=== PATIENT | female | born 1965 | race Caucasian/White ===

== ENCOUNTER 2019-04-01 10:29 | Emergency (ER) | payer OTHER ==
--- NOTE | 2019-04-01 13:09 | ED Physician Documentation ---
History of Present Illness - Stated complaint Stated Complaint: BODY RASH - Chief complaint Chief Complaint: Wound - Additonal information Additional information: This is a 54-year-old female presents with a painful rash along her chest for the last 72 hours. She noticed some more new red spots over her right lower chest today which prompted her to come in. She states the pain is burning, and more painful when she touches the area, it is a shooting pain that goes along the rash. No fever, she has not noticed a rash elsewhere on her body. Review of Systems Constitutional: denies: Fever Skin: reports: Rash PD PAST MEDICAL HISTORY - Present Medications Home Medications: Ambulatory Orders Medication Instructions Recorded Confirmed Valacyclovir HCl [Valacyclovir] 1,000 mg PO TID #7 tablet 04/01/19 - Allergies Allergies/Adverse Reactions: Allergies Allergy/AdvReac Type Severity Reaction Status Date / Time Sulfa (Sulfonamide Allergy Unknown Verified 04/01/19 10:43 Antibiotics) - Living Situation Living Arrangement: reports: At home - Social History Does the pt smoke?: No PD ED PE NORMAL - Vitals Vital signs reviewed: Yes - General General: Alert and oriented X 3 - HEENT HEENT: Atraumatic - Respiratory Respiratory: No respiratory distress - Abdomen Abdomen: Non distended - Derm Derm: Other (Vesicular rash with surrounding erythema in a dermatomal distribution over the right mid chest) - Neuro Neuro: Alert and oriented X 3 Results - Vitals Vitals: Vital Signs - 24 hr 04/01/19 10:40 Temperature 36.9 C Heart Rate 93 Respiratory 16 Rate Blood Pressure 166/102 H O2 Saturation 97 Oxygen O2 Source Room air PD MEDICAL DECISION MAKING - ED course Complexity details: considered differential ED course: Patient presents with classic symptoms and a rash for shingles. Given that she is having new lesions, and her symptom onset was around 72 hours ago, we will start valacyclovir. I discussed this treatment, as well as the fact that she is infectious, and I discussed pain control. I also recommended primary care follow-up for any persistent symptoms. I discussed return precautions and patient was discharged home Departure - Departure Disposition: 01 Home, Self Care Clinical Impression: Shingles Qualifiers: Herpes zoster complications: without complications Qualified Code(s): B02.9 - Zoster without complications Condition: Good Instructions: ED Shingles Follow-Up: Your,PCP [Other] Prescriptions: Valacyclovir HCl [Valacyclovir] 1,000 mg PO TID #7 tablet Comments: You have shingles, please take the Valtrex which is prescribed. If you are developing rash throughout your body, or other concerning symptoms return to the emergency department. You may use Tylenol and ibuprofen for discomfort.
[2019-04-01] MEDS ORDERED: valACYclovir 500 MG TABLET PO STA ×2 (13:24→13:26)
[2019-04-01 13:32] VITALS: BP 133/86
[2019-04-01] MEDS ORDERED: valACYclovir 500 MG TABLET PO SCH (14:00)
== END 2019-04-01 13:38 | disposition home or self-care (01) ==
LOC: ED 10:29
DX: B02.9 Zoster without complications (principal)
CPT/HCPCS: 99282; 99283; A9270

== ENCOUNTER 2019-06-24 17:18 | Emergency (ER) | payer OTHER ==
--- NOTE | 2019-06-24 17:40 | ED Physician Documentation ---
PD HPI URI - Stated complaint Stated Complaint: FEVER,COUGH,BACK PX - Chief complaint Chief Complaint: Heent - History obtained from History obtained from: Patient - History of Present Illness Timing - onset: How many weeks ago (The patient sounds like she has bronchitis. This likely will be viral given the nonproductive nature. She has had some fevers over the last week and coughing to the point of almost vomiting. She has had muscular and chest wall pain associated with coughing and deep breathing. She denies any continual chest pain. She has not had head cold symptoms per se but just the cough fever and some left-sided pains.) Timing duration: Weeks (1) Timing details: Gradual onset, Still present Associated symptoms: Fever, Dry cough, Chest pain (Hurts on the left side predominantly with coughing and somewhat deep breathing. It does not hurt continually.). No: Nasal congestion, Rhinorrhea, Sinus pain, Hemoptysis, NVD, Bilateral edema Contributing factors: COPD / asthma (She had been prescribed an inhaler with a prior upper respiratory infection. She does use it intermittently before exercise and feels better with that.). No: Sick contact Improves by: No: Medication (No improvement with [id number] medicines for cough and congestion.) Similar symptoms before: Has not had sx before Recently seen: Clinic (Seen in a walk-in clinic in [place] and was told to use [id number] cough medicines with presumption of a viral URI.) Review of Systems Constitutional: reports: Fever, Chills, Myalgias Nose: denies: Rhinorrhea / runny nose, Congestion Throat: denies: Sore throat Cardiac: reports: Chest pain / pressure (Hurts predominantly on the left side with coughing hard and deep breathing. She was at a conference this past week and sat next to a chiropractor who is attending as well and that person felt her and thought there was mild dislocation of the rib and put it back in place. This was just a curbside opinion.). 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 : None HEENT: None Psych: None Musculoskeletal: None, Other (Ehler-Danlos) Derm: None - Past Surgical History Past Surgical History: Yes Ortho: Shoulder arthroplasty - Present Medications Home Medications: Ambulatory Orders Medication Instructions Recorded Confirmed Valacyclovir HCl [Valacyclovir] 1,000 mg PO TID #7 tablet 04/01/19 Albuterol Sulfate [Albuterol 2 puffs IH QID #1 hfa.aer.ad 06/24/19 Sulfate Hfa] Azithromycin [Zithromax] 0 mg PO DAILY #6 tablet 06/24/19 Benzonatate [Tessalon Perle] 100 mg PO TID PRN #30 capsule 06/24/19 Hydrocodone/Acetaminophen [[place] 1 each PO Q6H PRN #15 tablet 06/24/19 5-325 Tablet] dexAMETHasone [Decadron] 4 mg PO DAILY #5 tablet 06/24/19 - Allergies Allergies/Adverse Reactions: Allergies Allergy/AdvReac Type Severity Reaction Status Date / Time Sulfa (Sulfonamide Allergy Unknown Verified 06/24/19 17:34 Antibiotics) - Social History Does the pt smoke?: No Smoking Status: Never smoker Does the pt drink ETOH?: No Does the pt have substance abuse?: No - Immunizations Immunizations are current?: Yes - POLST Patient has POLST: No PD ED PE NORMAL - Vitals Vital signs reviewed: Yes - General General: Alert and oriented X 3, No acute distress, Well developed/nourished - HEENT HEENT: Pharynx benign - Neck Neck: Supple, no meningeal sign, No adenopathy - Cardiac Cardiac: RRR, No murmur - Respiratory Respiratory: Clear bilaterally - Abdomen Abdomen: Soft, Non tender - Derm Derm: Normal color, Warm and dry - Neuro Neuro: Alert and oriented X 3, No motor deficit, Normal speech Results - Vitals Vitals: Vital Signs - 24 hr 06/24/19 06/24/19 17:34 18:51 Temperature 37.5 C 37.2 C Heart Rate 126 H 111 H Respiratory 14 18 Rate Blood Pressure 160/100 H 149/92 H O2 Saturation 97 99 Oxygen O2 Source Room air - Labs Labs: Laboratory Tests 06/24/19 17:30 Urine Color YELLOW Urine Clarity CLEAR Urine pH 5.5 Ur Specific [place] 1.010 Urine Protein NEGATIVE Urine Glucose (UA) NEGATIVE Urine Ketones NEGATIVE Urine Occult Blood NEGATIVE Urine Nitrite NEGATIVE Urine Bilirubin NEGATIVE Urine Urobilinogen 0.2 (NORMAL) Ur Leukocyte Esterase NEGATIVE Ur Microscopic Review NOT INDICATED Urine Culture Comments NOT INDICATED - Rads (name of study) chest xray Radiology: Prelim report reviewed, See rad report PD MEDICAL DECISION MAKING - ED course Complexity details: reviewed results (Likely to be a viral illness but with the degree of coughing and not much upper respiratory symptoms, could consider a pertussis like process. She did have cough and fevers and so does sound infectious. It is been slow progression. She does not have any calf tenderness or swelling or any recent travel. She presented slightly tachycardic at first but the heart rate improved while here.), considered differential (The patient sounds like she has bronchitis. This likely will be viral given the nonproductive nature. She has had some fevers over the last week and coughing to the point of almost vomiting. She has had muscular and chest wall pain a ssociated with coughing and deep breathing. She denies any continual chest pain. She has not had head cold symptoms per se but just the cough fever and some left-sided pains. 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 ), d/w patient Departure - Departure Disposition: 01 Home, Self Care Clinical Impression: Acute bronchitis Qualifiers: Bronchitis organism: unspecified organism Qualified Code(s): J20.9 - Acute br onchitis, unspecified Condition: Stable Record reviewed to determine appropriate education?: Yes Instructions: ED Upper Resp Infec Abx Tx Follow-Up: DARVIN BRITO MD [Primary Care Provider] - Prescriptions: Albuterol Sulfate [Albuterol Sulfate Hfa] 2 puffs IH QID #1 hfa.aer.ad Azithromycin [Zithromax] 0 mg PO DAILY #6 tablet Benzonatate [Tessalon Perle] 100 mg PO TID PRN #30 capsule PRN Reason: Cough dexAMETHasone [Decadron] 4 mg PO DAILY #5 tablet Hydrocodone/Acetaminophen [[place] 5-325 Tablet] 1 each PO Q6H PRN #15 tablet PRN Reason: Pain Comments: The x-ray does not show any obvious abnormality. We would treat this as a bronchitis. This may likely be viral but with the symptoms isolated to coughing so much, I would consider bacterial instead. As such we can treat with Zithromax antibiotic and also used Decadron steroid for inflammation of the airways. Tessalon if needed for cough suppression. I would suggest albuterol inhaler 2 puffs 4 times a day to help with cough and breathing. Continue it intermittently as needed. You can add Tylenol or hydrocodone as needed for cough suppression and also to help with pain. Recheck if not improving well over the next several days. Discharge Date/Time: 06/24/19 19:02
[2019-06-24 17:45] LABS: BILIRUBIN,URINE NEGATIVE (NEGATIVE); GLUCOSE, URINE (UA) NEGATIVE (NEGATIVE); KETONES,URINE (UA) NEGATIVE (NEGATIVE); LEUKOCYTE ESTERASE, URINE NEGATIVE (NEGATIVE); NITRITE,URINE NEGATIVE (NEGATIVE); OCCULT BLOOD,URINE NEGATIVE (NEGATIVE); PH,URINE 5.5 PH (5.0-7.5); PROTEIN,URINE NEGATIVE (NEGATIVE); UROBILINOGEN,URINE 0.2 (NORMAL) E.U./dL (NORMAL)
[2019-06-24 17:51] LABS: CLARITY,URINE CLEAR (CLEAR)
[2019-06-24] MEDS ORDERED: BENZONATATE 100 MG CAPSULE PO STA (18:04)
[2019-06-24] MEDS ORDERED: DOXYCYCLINE 100 MG TABLET PO STA (18:04)
[2019-06-24] MEDS ORDERED: DEXAMETHASONE 10 MG/ML VIAL PO STA (18:04)
[2019-06-24] MEDS ORDERED: CHERRY SYRUP 10 ML UDC PO ONE (18:04)
--- NOTE | 2019-06-24 18:47 | XRAY Report ---
Reason: dyspnea/ cough Procedure Date: 06/24/2019 Accession Number: [id number] / [id number] Procedure: XR - Chest 2 View X-Ray CPT Code: 36273 Final Report FULL RESULT: EXAM: CHEST RADIOGRAPHY EXAM DATE: 06/24/2019 06:15 PM. CLINICAL HISTORY: Cough and fever for 5 days. Dyspnea. COMPARISON: None. TECHNIQUE: 2 views. FINDINGS: Lungs/Pleura: Patchy opacity, mid right base, otherwise no focal opacities evident. Blunting of the right costophrenic angle. No left pleural effusion. No pneumothorax. Normal volumes. Mediastinum: Heart and mediastinal contours are unremarkable. Other: No bony abnormality noted. IMPRESSION: Right base opacity with small right pleural effusion compatible with pneumonia. Consider follow-up to assure clearing. RADIA
[2019-06-24] MEDS ORDERED: HYDROcod/ACETAM 5/325 MG TABLET PO STA (18:52)
[2019-06-24] MEDS ORDERED: ALBUTEROL NEB 2.5 MG/3 ML INH STA (18:52)
[2019-06-24 18:53] VITALS: BP 149/92
== END 2019-06-24 19:02 | disposition home or self-care (01) ==
LOC: ED 17:18
DX: J20.9 Acute bronchitis, unspecified (principal); R91.8 Other nonspecific abnormal finding of lung field; J90 Pleural effusion, not elsewhere classified; I10 Essential (primary) hypertension
CPT/HCPCS: 71046; 81003; 99284; A9270; 81001; 87086

== ENCOUNTER 2019-06-26 22:32 | Outpatient (CLI) | payer OTHER | END 2019-06-26 22:33 | disposition critical access hospital (66) | LOC: EMS 22:32 | PROVIDERS: ATTEND Surgery | DX: R10.11 Right upper quadrant pain (principal) | CPT/HCPCS: A0425; A0427 ==

== ENCOUNTER 2019-06-26 22:38 | Emergency (ER) | payer OTHER ==
--- NOTE | 2019-06-26 22:42 | ED Physician Documentation ---
History of Present Illness - Stated complaint Stated Complaint: RLQ PAIN - Chief complaint Chief Complaint: Neuro - History obtained from History obtained from: Patient (The patient is a 54-year-old female brought in by ambulance with a chief complaint of nerve pain on the right Upper quadrant where she previously had shingles.The patient reports that she feels like she is having severe nerve pain that was just like her shingles outbreak that she had last year.She recently was diagnosed with what sounds like either pneumonia or bronchitis and was treated with azithromycin as well as a Medrol Dosepak.She denies any chest pain or shortness of breath but she does report previously that she was coughing severely she denies any hemoptysis or syncopal episodes she specifically denied any chest pain today.The patient reports that she is c urrently under a lot of stress as recently she was taking care of her while he was admitted to the hospital for a brain tumor as well as a cardiac work-up.) Review of Systems Constitutional: reports: Fever, Chills Eyes: reports: Reviewed and negative Ears: reports: Reviewed and negative Nose: reports: Reviewed and negative Throat: reports: Reviewed and negative Cardiac: denies: Chest pain / pressure, Palpitations, Pedal edema, Calf pain Respiratory: reports: Cough. denies: Dyspnea, Hemoptysis, Wheezing GI: reports: Abdominal Pain : reports: Reviewed and negative. 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 : None HEENT: None Psych: None Musculoskeletal: None, Other (Ehler-Danlos) Derm: None - Past Surgical History Past Surgical History: Yes Ortho: Shoulder arthroplasty - Present Medications Home Medications: Ambulatory Orders Medication Instructions Recorded Confirmed Valacyclovir HCl [Valacyclovir] 1,000 mg PO TID #7 tablet 04/01/19 Albuterol Sulfate [Albuterol 2 puffs IH QID #1 hfa.aer.ad 06/24/19 Sulfate Hfa] Azithromycin [Zithromax] 0 mg PO DAILY #6 tablet 06/24/19 Benzonatate [Tessalon Perle] 100 mg PO TID PRN #30 capsule 06/24/19 Hydrocodone/Acetaminophen [[place] 1 each PO Q6H PRN #15 tablet 06/24/19 5-325 Tablet] dexAMETHasone [Decadron] 4 mg PO DAILY #5 tablet 06/24/19 Doxycycline Monohydrate 100 mg PO BID 7 Days #14 tablet 06/27/19 Gabapentin 300 mg PO TID #10 capsule 06/27/19 Hydrocodone/Acetaminophen [[place] 1 each PO Q6HR PRN #7 tablet 06/27/19 5-325 Tablet] - Allergies Allergies/Adverse Reactions: Allergies Allergy/AdvReac Type Severity Reaction Status Date / Time Sulfa (Sulfonamide Allergy Unknown Verified 06/24/19 17:34 Antibiotics) - Social History Does the pt smoke?: No Smoking Status: Never smoker Does the pt drink ETOH?: No Does the pt have substance abuse?: No - Immunizations Immunizations are current?: Yes - POLST Patient has POLST: No PD ED PE NORMAL - Vitals Vital signs reviewed: Yes - General General: Alert and oriented X 3, No acute distress, Well developed/nourished - HEENT HEENT: Atraumatic, PERRL, EOMI, Ears normal, Moist mucous membranes, Pharynx benign, Dentition benign - Neck Neck: Supple, no meningeal sign, No bony TTP, No adenopathy, No JVD, No bruit - Cardiac Cardiac: RRR, No murmur, No gallop, No rub, Strong equal pulses - Respiratory Respiratory: No respiratory distress, Clear bilaterally - Abdomen Abdomen: Normal bowel sounds, Soft, Non distended, No organomegaly, Other (Diffuse tenderness in the abdomen more so in the right upper quadrant) - Derm Derm: Normal color, Warm and dry, No rash, Other (There is diffuse tenderness to palpation approximately around dermatome T9-T10 On the right sideWithout any lesions but exquisite tenderness to palpation) - Extremities Extremities: No deformity - Neuro Neuro: Alert and oriented X 3, employment coordinator 2-12 intact, No motor deficit, Normal speech - Psych Psych: Normal mood, Normal affect Results - Vitals Vitals: Vital Signs - 24 hr 06/26/19 22:38 Temperature 36.3 C L Heart Rate 95 Respiratory 24 Rate Blood Pressure 141/119 H O2 Saturation 97 Oxygen O2 Source Room air - Labs Labs: Laboratory Tests 06/26/19 06/26/19 06/26/19 23:40 23:40 23:40 WBC 20.1 H RBC 4.35 Hgb 13.0 Hct 38.9 MCV 89.4 MCH 29.9 MCHC 33.4 RDW 13.1 Plt Count 404 MPV 11.4 H Neut # (Auto) Not Reportable Lymph # (Auto) Not Reportable [place] # (Auto) Not Reportable Eos # (Auto) Not Reportable Baso # (Auto) Not Reportable Absolute Nucleated RBC Not Reportable Total Counted 100 Band Neuts % (Manual) 0 Abnorm Lymph % (Manual) 4 Nucleated RBC % Not Reportable Neutrophils # (Manual) 16.3 H Lymphocytes # (Manual) 3.0 Monocytes # (Manual) 0.8 Eosinophils # (Manual) 0.0 Basophils # (Manual) 0.0 Differential Comment MANUAL DIFFERENTIAL WBC Morphology NORMAL APPEARANCE Platelet Estimate NORMAL (130-450,000) Platelet Morphology 1+ LARGE PLATELETS RBC Morph Micro Appear NORMAL APPEARANCE PT INR APTT Sodium 135 Potassium 3.9 Chloride 101 Carbon Dioxide 23 Anion Gap 11.0 BUN 26 H Creatinine 0.8 Estimated GFR (MDRD) 75 L Glucose 132 H Lactic Acid Calcium 8.6 Total Bilirubin 0.2 AST 17 ALT 21 Alkaline Phosphatase 64 Troponin I High Sens 3.9 B-Natriuretic Peptide Total Protein 7.3 Albumin 3.4 Globulin 3.9 Albumin/Globulin Ratio 0.9 L Lipase 32 06/27/19 06/27/19 06/27/19 00:04 00:04 00:04 WBC RBC Hgb Hct MCV MCH MCHC RDW Plt Count MPV Neut # (Auto) Lymph # (Auto) [place] # (Auto) Eos # (Auto) Baso # (Auto) Absolute Nucleated RBC Total Counted Band Neuts % (Manual) Abnorm Lymph % (Manual) Nucleated RBC % Neutrophils # (Manual) Lymphocytes # (Manual) Monocytes # (Manual) Eosinophils # (Manual) Basophils # (Manual) Differential Comment WBC Morphology Platelet Estimate Platelet Morphology RBC Morph Micro Appear PT 12.6 INR 1.1 APTT 28.0 Sodium Potassium Chloride Carbon Dioxide Anion Gap BUN Creatinine Estimated GFR (MDRD) Glucose Lactic Acid 2.0 Calcium Total Bilirubin AST ALT Alkaline Phosphatase Troponin I High Sens B-Natriuretic Peptide 42 Total Protein Albumin Globulin Albumin/Globulin Ratio Lipase PD MEDICAL DECISION MAKING - ED course Complexity details: considered differential (Patient's history and exam are consistent with pneumonia as well as postherpetic neuralgia she does have a leukocytosis which could be attributable to infection and/or being on prednisone currently.Patient will be treated with 1 dose of IV antibiotics.We did have a lengthy discussion regarding all of the test results and planning we discussed inpatient admission versus observation versus discharging home with close follow-up the patient would like to be discharged home.Which I feel is a reasonable option with close follow-up) Departure - Departure Disposition: Home, Self Care Clinical Impression: Postherpetic neuralgia Pneumonia Qualifiers: Pneumonia type: due to unspecified organism Laterality: right Lung location: unspecified part of lung Qualified Code(s): J18.9 - Pneumonia, unspecified organism Condition: Good Instructions: Pneumonia Dc, Neuropathy Peripheral Follow-Up: YOUR,DOCTOR [Other] - 06/27/19 Prescriptions: Hydrocodone/Acetaminophen [[place] 5-325 Tablet] 1 each PO Q6HR PRN #7 tablet PRN Reason: Pain Doxycycline Monohydrate 100 mg PO BID 7 Days #14 tablet Gabapentin 300 mg PO TID #10 capsule
[2019-06-26] MEDS ORDERED: ONDANSETRON 4 MG/2 ML VIAL IVP STA (23:17)
[2019-06-26] MEDS ORDERED: SODIUM CHLORIDE 0.9% 1,000 ML IV ONE (23:17)
[2019-06-26] MEDS ORDERED: HYDROmorphone 2 MG/ML VIAL IVP STA (23:17)
[2019-06-26 23:56] LABS: BASOPHILS % (AUTO) 0.5 %; EOSINOPHILS % (AUTO) 0.7 %; LYMPHOCYTES % (AUTO) 11.4 %; MEAN CORPUSCULAR HEMOGLOBIN 29.9 pg (27.0-31.0); MEAN CORPUSCULAR HGB CONC 33.4 g/dL (32.0-36.0); MEAN CORPUSCULAR VOLUME 89.4 fL (81.0-99.0); MEAN PLATELET VOLUME 11.4 fL (7.9-10.8); MONOCYTES % (AUTO) 6.5 %; NEUTROPHILS % (AUTO) 79.3 %; PLT - PLATELET COUNT 404 10^3/uL (130-450); RED BLOOD COUNT 4.35 10^6/uL (4.20-5.40); RED CELL DISTRIBUTION WIDTH 13.1 % (12.0-15.0); WHITE BLOOD COUNT 20.1 x10^3/uL (4.8-10.8)
[2019-06-27 00:03] LABS: BAND NEUTROPHILS % (MANUAL) 0 %
[2019-06-27 00:09] LABS: ALBUMIN 3.4 g/dL (3.2-5.5); ALBUMIN/GLOBULIN RATIO 0.9 (1.0-2.2); BILIRUBIN,TOTAL 0.2 mg/dL (0.2-1.0); CALCIUM 8.6 mg/dL (8.5-10.3); CREATININE 0.8 mg/dL (0.4-1.0); TOTAL PROTEIN 7.3 g/dL (6.7-8.2)
[2019-06-27 00:23] LABS: INR 1.1 (0.8-1.2); PT - PROTHROMBIN TIME 12.6 secs (9.9-12.6)
[2019-06-27 00:35] LABS: ABNORMAL LYMPHS % (MANUAL) 4 %; LYMPHOCYTES % (MANUAL) 11 %; MONOCYTES # (MANUAL) 0.8 10^3/uL (0.0-1.0)
[2019-06-27 00:38] LABS: RBC MORPHOLOGY (MULTIPLE) NORMAL APPEARANCE (NORMAL)
--- NOTE | 2019-06-27 00:38 | XRAY Report ---
Reason: SOB Procedure Date: 06/27/2019 Accession Number: [id number] / [id number] Procedure: XR - Chest 1 View X-Ray CPT Code: 75796 Final Report FULL RESULT: EXAM: CHEST RADIOGRAPHY EXAM DATE: 06/27/2019 12:02 AM CLINICAL HISTORY: Shortness of breath. COMPARISON: CHEST 2 VIEW 06/24/2019 6:18 PM. TECHNIQUE: 1 view. FINDINGS: Lungs/Pleura: There is elevation of the right hemidiaphragm. The lungs are otherwise clear. No pleural effusion or pneumothorax. Mediastinum: Within exam limitations, the cardiomediastinal contour is normal. Other: None. IMPRESSION: No acute pulmonary airspace disease. RADIA
[2019-06-27 00:39] LABS: DIFFERENTIAL COMMENT MANUAL DIFFERENTIAL; PLATELET ESTIMATE, MANUAL NORMAL (130-450,000) (NORMAL); PLATELET MORPHOLOGY 1+ LARGE PLATELETS (NORMAL)
[2019-06-27] MEDS ORDERED: IOVERSOL 320 100 ML VIAL IVP ONE ×2 (00:42→00:47)
--- NOTE | 2019-06-27 01:13 | CT Report ---
Reason: ABD PAIN Procedure Date: 06/27/2019 Accession Number: [id number] / [id number] Procedure: CT - Abdomen/Pelvis W CPT Code: Final Report FULL RESULT: EXAM: CT ABDOMEN AND PELVIS EXAM DATE: 06/27/2019 12:41 AM CLINICAL HISTORY: Abdominal pain. COMPARISONS: CHEST 1 VIEW 06/26/2019 11:45 PM. TECHNIQUE: Routine helical CT imaging was performed through the abdomen and pelvis. IV contrast: 100 mL Optiray 320. Enteric contrast: No. Reconstructions: Coronal and sagittal. In accordance with CT protocol optimization, one or more of the following dose reduction techniques were utilized for this exam: automated exposure control, adjustment of mA and/or KV based on patient size, or use of iterative reconstructive technique. FINDINGS: Lung Bases: There is a small right pleural effusion. A small wedge-shaped focus of consolidation is seen in the right lower lobe. The left lung base is clear. Liver: There is a partially exophytic 6.7 cm cyst in the lateral segment of the liver. At least 3 additional smaller cysts are seen in the right hepatic lobe. Gallbladder/Bile Ducts: Unremarkable. Spleen: Normal. Pancreas: Normal. Adrenal Glands: Normal. Kidneys: Normal. No masses or hydronephrosis. Peritoneal Cavity/Bowel: diverticulosis without diverticulitis. No small bowel obstruction. No free air or fluid collections. The appendix is well-visualized and normal. Pelvic Organs: There is a 2.7 cm exophytic fibroid at the left uterine fundus. No pelvic fluid collections. The urinary bladder is unremarkable. Vasculature: No aneurysms or other significant abnormality. Bones: No significant abnormality. Other: None. IMPRESSION: 1. Diverticulosis without diverticulitis or other acute inflammatory process. 2. No small bowel obstruction or fluid collections. 3. Small right pleural effusion with small focus of right lower lobe consolidation suspicious for pneumonia in the appropriate clinical context. Consider radiographic follow-up to confirm resolution. RADIA
[2019-06-27] MEDS ORDERED: cefTRIAXone 1 GM in SODIUM CHLORIDE 0.9% MINIBAG 100 ML IV STA (01:18)
[2019-06-27] MEDS ORDERED: HYDROcod/ACET 5/325 Prepack 4 PO STA (02:06)
[2019-06-27 02:25] VITALS: BP 146/99
== END 2019-06-27 02:26 | disposition home or self-care (01) ==
LOC: EDUNIT# → ED 22:38
DX: B02.29 Other postherpetic nervous system involvement (principal); J18.9 Pneumonia, unspecified organism; I10 Essential (primary) hypertension
CPT/HCPCS: 36415; 71045; 74177; 80053; 83605; 83690; 83880; 84484; 85025; 85610; 85730; 93005; 96374; 96375; 99284; J1170; Q9967

== ENCOUNTER 2019-07-10 10:07 | Emergency (ER) | payer OTHER ==
--- NOTE | 2019-07-10 12:49 | XRAY Report ---
Reason: cough Procedure Date: 07/10/2019 Accession Number: [id number] / [id number] Procedure: XR - Chest 2 View X-Ray CPT Code: 99053 Final Report FULL RESULT: EXAM: CHEST RADIOGRAPHY EXAM DATE: 07/10/2019 12:25 PM. CLINICAL HISTORY: Cough. COMPARISON: CHEST 1 VIEW 06/26/2019 11:45 PM ABDOMEN/PELVIS W/ 06/27/2019 12:30 AM. TECHNIQUE: 2 views. FINDINGS: Lungs/Pleura: There is reticular opacity within the right lung base. There is a small right pleural effusion. There is no evidence of pneumothorax. Mediastinum: Heart and mediastinal contours are unremarkable. Other: None. IMPRESSION: 1. There is reticular opacity within the right lung base which is suspicious for infiltrate. There is a small right pleural effusion. 2. The left lung is clear. 3. There is no evidence of pneumothorax. RADIA
--- NOTE | 2019-07-10 13:19 | ED Physician Documentation ---
PD HPI URI - Stated complaint Stated Complaint: COUGH - Chief complaint Chief Complaint: Resp - History obtained from History obtained from: Patient - History of Present Illness Timing - onset: How many weeks ago (2) Timing duration: Weeks (2) Timing details: Gradual onset, Still present Associated symptoms: Nasal congestion, Dry cough, Chest pain, Dyspnea Improves by: Rest, Medication Worsened by: Activity Similar symptoms before: Diagnosis (pneumonia) Recently seen: Emergency Dept - Additional information Additional information: 54-year-old female seen here 2 weeks ago with cough and chest pain was diagnosed with bronchitis placed on a azithromycin dexamethasone and 2 days later her shingles pain returned with a vengeance. She has come back to the emergency department she was diagnosed with a right lower lobe pneumonia and placed onto doxycycline. Despite taking this she has had no significant improvement she continues to have a cough with pain in the right chest with the coughing and trouble getting a full deep breath associated with the pain in the right side. She states the rash of the shingles is resolved. She does not feel that she has resolved her infection. Review of Systems Constitutional: denies: Fever Eyes: denies: Decreased vision Ears: denies: Ear pain Nose: denies: Rhinorrhea / runny nose, Congestion Throat: denies: Sore throat Cardiac: reports: Chest pain / pressure. denies: Palpitations, Pedal edema, Calf pain Respiratory: reports: Dyspnea, Cough GI: denies: Abdominal Pain, Nausea, Vomiting : denies: Dysuria, Frequency Skin: denies: Rash Musculoskeletal: denies: Neck pain, Back pain, Extremity pain Neurologic: denies: Generalized weakness, Focal weakness, Numbness PD PAST MEDICAL HISTORY - Past Medical History Cardiovascular: Hypertension Respiratory: None Neuro: None Endocrine/Autoimmune: HyPOthyroidism GI: None CLERICAL SUPPORT: None : None HEENT: None Psych: None Musculoskeletal: None, Other (Ehler-Danlos) Derm: None - Past Surgical History Past Surgical History: Yes Ortho: Shoulder arthroplasty - Present Medications Home Medications: Ambulatory Orders Medication Instructions Recorded Confirmed Valacyclovir HCl [Valacyclovir] 1,000 mg PO TID #7 tablet 04/01/19 Albuterol Sulfate [Albuterol 2 puffs IH QID #1 hfa.aer.ad 06/24/19 Sulfate Hfa] Azithromycin [Zithromax] 0 mg PO DAILY #6 tablet 06/24/19 Benzonatate [Tessalon Perle] 100 mg PO TID PRN #30 capsule 06/24/19 Hydrocodone/Acetaminophen [[place] 1 each PO Q6H PRN #15 tablet 06/24/19 5-325 Tablet] dexAMETHasone [Decadron] 4 mg PO DAILY #5 tablet 06/24/19 Doxycycline Monohydrate 100 mg PO BID 7 Days #14 tablet 06/27/19 Gabapentin 300 mg PO TID #10 capsule 06/27/19 Hydrocodone/Acetaminophen [[place] 1 each PO Q6HR PRN #7 tablet 06/27/19 5-325 Tablet] Cefdinir 300 mg PO BID #20 capsule 07/10/19 - Allergies Allergies/Adverse Reactions: Allergies Allergy/AdvReac Type Severity Reaction Status Date / Time Sulfa (Sulfonamide Allergy Unknown Verified 07/10/19 10:11 Antibiotics) - Social History Does the pt smoke?: No Smoking Status: Never smoker Does the pt drink ETOH?: No Does the pt have substance abuse?: No - Immunizations Immunizations are current?: Yes - POLST Patient has POLST: No PD ED PE NORMAL - Vitals Vital signs reviewed: Yes (Tachycardic and hypertensive) - General General: Alert and oriented X 3, No acute distress, Well developed/nourished - HEENT HEENT: Atraumatic, PERRL, EOMI, Ears normal, Moist mucous membranes, Pharynx benign, Dentition benign - Neck Neck: Supple, no meningeal sign, No bony TTP - Cardiac Cardiac: RRR, No murmur - Respiratory Respiratory: No respiratory distress, Other (diminished breath sounds.) - Abdomen Abdomen: Soft, Non tender - Back Back: No CVA TTP, No spinal TTP - Derm Derm: Normal color, Warm and dry, No rash - Extremities Extremities: No deformity, No edema, No calf tenderness / cord - Neuro Neuro: Alert and oriented X 3, 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, No motor deficit, No sensory deficit, Normal speech Eye Opening: Spontaneous Motor: Obeys Commands Verbal: Oriented GCS Score: 15 - Psych Psych: Normal mood, Normal affect Results - Vitals Vitals: Vital Signs - 24 hr 07/10/19 07/10/19 10:11 13:39 Temperature 36.8 C Heart Rate 120 H 104 H Respiratory 14 20 Rate Blood Pressure 161/90 H 153/100 H O2 Saturation 95 96 Oxygen O2 Source Room air PD MEDICAL DECISION MAKING - ED course Complexity details: reviewed old records, reviewed results, re-evaluated patient, considered differential, d/w patient ED course: 54-year-old female with a history of a recent pneumonia has not had improvement with the use of a azithromycin or doxycycline. She continues to have symptoms and she has had a progression of findings on her chest x-ray. We have given her a second injection of Rocephin and we will change her antibiotic to Cefdinir. Departure - Departure Disposition: 01 Home, Self Care Clinical Impression: Pneumonia Qualifiers: Pneumonia type: due to unspecified organism Laterality: right Lung location: lower lobe of lung Qualified Code(s): J18.9 - Pneumonia, unspecified organism Condition: Stable Instructions: ED Pneumonia Adult Follow-Up: Your, doctor [Other] Prescriptions: Cefdinir 300 mg PO BID #20 capsule
[2019-07-10] MEDS ORDERED: LIDOCAINE 1% 2 ML VIAL MC ONE (13:37)
[2019-07-10] MEDS ORDERED: cefTRIAXone 1 GM VIAL IM STA (13:37)
[2019-07-10 13:40] VITALS: BP 153/100
== END 2019-07-10 14:10 | disposition home or self-care (01) ==
LOC: ED 10:07
DX: J18.9 Pneumonia, unspecified organism (principal)
CPT/HCPCS: 71046; 96372; 99283; 99284

== ENCOUNTER 2020-10-03 07:00 | Outpatient (CLI) | payer BC, MEDICAID, OTHER | END 2020-10-03 23:59 | disposition home or self-care (01) | LOC: LAB.N 07:00 | PROVIDERS: ATTEND Family Medicine | DX: R30.0 Dysuria (principal) | CPT/HCPCS: 87086 ==

== ENCOUNTER 2020-10-30 08:06 | Outpatient (CLI) | payer BC ==
[2020-10-30 08:25] LABS: BASOPHILS # (AUTO) 0.1 10^3/uL (0.0-0.1); EOSINOPHILS # (AUTO) 0.7 10^3/uL (0.0-0.7); EOSINOPHILS % (AUTO) 8.8 %; HCT - HEMATOCRIT 41.6 % (37.0-47.0); LYMPHOCYTES # (AUTO) 1.9 10^3/uL (1.5-3.5); LYMPHOCYTES % (AUTO) 24.2 %; MEAN CORPUSCULAR HEMOGLOBIN 29.7 pg (27.0-31.0); MEAN CORPUSCULAR HGB CONC 33.7 g/dL (32.0-36.0); MEAN CORPUSCULAR VOLUME 88.3 fL (81.0-99.0); MEAN PLATELET VOLUME 11.9 fL (7.9-10.8); MONOCYTES # (AUTO) 0.6 10^3/uL (0.0-1.0); MONOCYTES % (AUTO) 6.9 %; NEUTROPHILS # (AUTO) 4.7 10^3/uL (1.5-6.6); NEUTROPHILS % (AUTO) 58.6 %; PLT - PLATELET COUNT 213 10^3/uL (130-450); RED BLOOD COUNT 4.71 10^6/uL (4.20-5.40); RED CELL DISTRIBUTION WIDTH 13.2 % (12.0-15.0)
[2020-10-30 08:40] LABS: ALBUMIN 4.2 g/dL (3.2-5.5); ALBUMIN/GLOBULIN RATIO 1.4 (1.0-2.2); ALKALINE PHOSPHATASE 65 IU/L (42-121); ALT ALANINE AMINOTRANSFERASE 20 IU/L (10-60); AST ASPARTATE AMINOTRANSFERASE 18 IU/L (10-42); BILIRUBIN,TOTAL 0.5 mg/dL (0.2-1.0); BUN - BLOOD UREA NITROGEN 17 mg/dL (6-20); CALCIUM 9.1 mg/dL (8.5-10.3); CARBON DIOXIDE - CO2 25 mmol/L (21-32); CHLORIDE 105 mmol/L (101-111); CHOL/HDL RATIO 4.2 (<4.4); CHOLESTEROL 171 mg/dL; CREATININE 0.6 mg/dL (0.4-1.0); GFR - MDRD 105 (>89); GLUCOSE 106 mg/dL (70-100); HDL CHOLESTEROL 41 mg/dL; LDL CHOLESTEROL,CALCULATED 102 mg/dL; LDL/HDL RATIO 2.5 (<4.4); POTASSIUM 4.1 mmol/L (3.5-5.0); SODIUM 140 mmol/L (135-145); TOTAL PROTEIN 7.1 g/dL (6.7-8.2); TRIGLYCERIDES 140 mg/dL; VLDL CHOLESTEROL 28 mg/dL
[2020-10-30 08:52] LABS: THYROID STIMULATING HORMONE 1.79 uIU/mL (0.34-5.60)
[2020-10-30 08:54] LABS: FREE T4 (FREE THYROXINE) 1.16 ng/dL (0.58-1.64)
== END 2020-10-30 08:07 | disposition home or self-care (01) ==
LOC: LAB 08:06
PROVIDERS: ATTEND Internal Medicine Cardiovascular Disease
DX: I10 Essential (primary) hypertension (principal); E05.90 Thyrotoxicosis, unspecified without thyrotoxic crisis or storm
CPT/HCPCS: 36415; 80053; 80061; 83721; 84439; 84443; 85025

== ENCOUNTER 2021-05-02 12:31 | Outpatient (CLI) | payer OTHER, BC ==
--- NOTE | 2021-05-02 13:41 | XRAY Report ---
PROCEDURE: Cervical Spine 2 View INDICATIONS: NECK PX TECHNIQUE: 3 view(s) of the cervical spine were acquired. COMPARISON: None. FINDINGS: Bones: No fractures or dislocations to the C7 level. The lateral masses of C1 appear intact on the odontoid view. Mild to moderate disc height loss with posterior disc osteophyte complexes at C4-7. N o suspicious bony lesions. Soft tissues: No prevertebral soft tissue swelling. IMPRESSION: No acute osseous abnormality. Reviewed by: Juan Carlos Juarez MD on 05/02/2021 1:40 PM [facility] Approved by: Juan Carlos Juarez MD on 05/02/2021 1:40 PM [facility] Station ID: [id number]
--- NOTE | 2021-05-02 13:42 | XRAY Report ---
PROCEDURE: Wrist 4 View LT INDICATIONS: L WRIST PX TECHNIQUE: 4 views of the wrist were acquired. COMPARISON: None. FINDINGS: Bones: Remote appearing fracture deformity of the ulnar styloid. The remaining visualized osseous str uctures appear maintained. No suspicious bony lesions. Scaphoid view: Intact. Soft tissues: No suspicious soft tissue calcifications. IMPRESSION: 1. Remote appearing fracture deformity of the ulnar styloid. Reviewed by: Juan Carlos Juarez MD on 05/02/2021 1:41 PM [facility] Approved by: Juan Carlos Juarez MD on 05/02/2021 1:41 PM [facility] Station ID: [id number]
== END 2021-05-02 23:59 | disposition home or self-care (01) ==
LOC: DI.N 12:31
PROVIDERS: ATTEND Family Medicine
DX: M54.2 Cervicalgia (principal); M25.532 Pain in left wrist

== ENCOUNTER 2021-06-24 13:08 | Outpatient (CLI) | payer BC ==
--- NOTE | 2021-06-24 18:48 | XRAY Report ---
PROCEDURE: Wrist 3 View LT, x-ray INDICATIONS: F/U WRIST FX TECHNIQUE: 3 views of the wrist were acquired. COMPARISON: 05/02/2021 FINDINGS: Bones: No acute fractures or dislocations. No suspicious bony lesions. Old ununited ulnar styloid f racture remains unchanged from the prior exam. Radiocarpal joint space and narrowing present. Soft tissues: No suspicious soft tissue calcifications. 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
== END 2021-06-24 13:09 | disposition home or self-care (01) ==
LOC: DI.WOS 13:08
PROVIDERS: ATTEND Physician Assistant
DX: S52.612K Displaced fracture of left ulna styloid process, subsequent encounter for closed fracture with nonunion (principal)

== ENCOUNTER 2022-02-26 14:31 | Outpatient (CLI) | payer BC ==
--- NOTE | 2022-02-27 12:16 | Mammography Report ---
BILATERAL DIGITAL SCREENING MAMMOGRAM 3D/2D: 02/26/2022 CLINICAL: Routine screening. Comparison is made to exams dated: 05/01/2019 mammogram - [facility], 08/31/2017 mammogram, an d 06/03/2016 mammogram - [facility]. There are scattered areas of fibroglandular density in both breasts (category b / 25%-50% glandular t issue). There is a possible irregular equal density asymmetry in the left breast anterior depth superior kameron on seen on the mediolateral oblique view only. This is more prominent. No other significant masses, calcifications, or other findings are seen in either breast. IMPRESSION: INCOMPLETE: NEEDS ADDITIONAL IMAGING EVALUATION The possible irregular equal density asymmetry in the left breast is indeterminate. Additional views with possible ultrasound are recommended. Based on Tyrer-Cuzick model (a risk assessment model), the patient's lifetime risk is 21.1% and her 1 0 year risk is 6.9%. If a patient has an elevated risk, a more comprehensive evaluation should be con sidered and/or a referral to a genetic counselor. The [place] [employer], [place] [employer], and NCCN Guidelines advise the consideration of Breast MRI as an adjunct to screening mammog zeny in patients whose "Lifetime risk to develop breast cancer" is 20% or higher. This exam was interpreted at Station ID: [id number]. NOTE: For mammograms, a report in lay terms will be sent to the patient. Approximately 15% of breast malignancies will not be visualized mammographically. In the management of a palpable breast mass, a negative mammogram must not discourage biopsy of a clinically suspicious lesion. Electronically Signed By: Chele Trent M.D. aty/:02/27/2022 08:06:54 ACR BI-RADS Category 0: Incomplete 3340F PARENCHYMAL PATTERN: (A) - The breast(s) demonstrate(s) scattered fibroglandular densities. BI-RADS CATEGORY: (0) - 0 Mammo and [place] [id number] Immediate follow-up LATERALITY: (L)
== END 2022-02-26 14:32 | disposition home or self-care (01) ==
LOC: DI 14:31
DX: Z12.31 Encounter for screening mammogram for malignant neoplasm of breast (principal); R92.8 Other abnormal and inconclusive findings on diagnostic imaging of breast

== ENCOUNTER 2023-03-03 08:40 | Outpatient (CLI) | payer BC ==
[2023-03-03 08:53] LABS: BASOPHILS # (AUTO) 0.1 10^3/uL (0.0-0.1); BASOPHILS % (AUTO) 1.1 %; EOSINOPHILS % (AUTO) 10.4 %; HCT - HEMATOCRIT 41.8 % (37.0-47.0); LYMPHOCYTES % (AUTO) 21.6 %; MEAN CORPUSCULAR HEMOGLOBIN 29.8 pg (27.0-31.0); MEAN CORPUSCULAR HGB CONC 33.5 g/dL (32.0-36.0); MEAN CORPUSCULAR VOLUME 88.9 fL (81.0-99.0); MONOCYTES # (AUTO) 0.6 10^3/uL (0.0-1.0); MONOCYTES % (AUTO) 6.7 %; NEUTROPHILS # (AUTO) 5.5 10^3/uL (1.5-6.6); NEUTROPHILS % (AUTO) 59.8 %; PLT - PLATELET COUNT 251 10^3/uL (130-450); RED CELL DISTRIBUTION WIDTH 13.7 % (12.0-15.0); WHITE BLOOD COUNT 9.2 x10^3/uL (4.8-10.8)
[2023-03-03 09:24] LABS: ALBUMIN 4.2 g/dL (3.2-5.5); ALBUMIN/GLOBULIN RATIO 1.6 (1.0-2.2); ALKALINE PHOSPHATASE 75 IU/L (42-121); ALT ALANINE AMINOTRANSFERASE 17 IU/L (10-60); AST ASPARTATE AMINOTRANSFERASE 15 IU/L (10-42); BILIRUBIN,TOTAL 0.4 mg/dL (0.2-1.0); BUN - BLOOD UREA NITROGEN 13 mg/dL (6-20); CALCIUM 9.1 mg/dL (8.5-10.3); CARBON DIOXIDE - CO2 25 mmol/L (21-32); CHLORIDE 105 mmol/L (101-111); CHOLESTEROL 162 mg/dL; CREATININE 0.7 mg/dL (0.6-1.3); GFR - MDRD 87 (>89); GLUCOSE 105 mg/dL (74-104); POTASSIUM 4.1 mmol/L (3.5-4.5); SODIUM 139 mmol/L (135-145); TOTAL PROTEIN 6.9 g/dL (6.4-8.9); TRIGLYCERIDES 172 mg/dL (48-352); VLDL CHOLESTEROL 34 mg/dL
[2023-03-03 09:57] LABS: THYROID STIMULATING HORMONE 1.72 uIU/mL (0.34-5.60)
[2023-03-03 11:29] LABS: ESTIMATED AVERAGE GLUCOSE 117 mg/dL (70-100); HEMOGLOBIN A1c% 5.7 % (4.27-6.07)
[2023-03-04 00:01] LABS: CHOL/HDL RATIO 4.3 (<4.4); HDL CHOLESTEROL 38 mg/dL; LDL CHOLESTEROL,CALCULATED 90 mg/dL; LDL/HDL RATIO 2.4 (<4.4)
== END 2023-03-03 08:41 | disposition home or self-care (01) ==
LOC: LAB 08:40
PROVIDERS: ATTEND Nurse Practitioner
DX: I10 Essential (primary) hypertension (principal); Z13.220 Encounter for screening for lipoid disorders; E66.9 Obesity, unspecified; E03.9 Hypothyroidism, unspecified; F41.9 Anxiety disorder, unspecified; F32.A Depression, unspecified
CPT/HCPCS: 36415; 80053; 80061; 83036; 83721; 84439; 84443; 85025

== ENCOUNTER 2023-06-27 18:17 | Emergency (ER) | payer BC ==
[2023-06-27 18:35] LABS: BILIRUBIN,URINE NEGATIVE (NEGATIVE); GLUCOSE, URINE (UA) NEGATIVE (NEGATIVE); KETONES,URINE (UA) NEGATIVE (NEGATIVE); LEUKOCYTE ESTERASE, URINE MODERATE (NEGATIVE); NITRITE,URINE NEGATIVE (NEGATIVE); OCCULT BLOOD,URINE SMALL (NEGATIVE); PROTEIN,URINE NEGATIVE (NEGATIVE); UROBILINOGEN,URINE 0.2 (NORMAL) E.U./dL (NORMAL)
[2023-06-27 18:39] LABS: CLARITY,URINE CLOUDY (CLEAR)
--- NOTE | 2023-06-27 18:47 | ED Physician Documentation ---
PD HPI FEMALE - Stated complaint Stated Complaint: - Chief complaint Chief Complaint: UTI - History obtained from History obtained from: Patient - Additional information Additional information: 3 days of urinary frequency and dysuria with mild backache. No fevers. She has infrequent UTIs, had a lot of the child but the last one as an adult was she thinks about 10 years ago. PD PAST MEDICAL HISTORY - Past Medical History Past Medical History: Yes Cardiovascular: Hypertension Respiratory: None Neuro: None Endocrine/Autoimmune: HyPOthyroidism GI: None S[employer] HEAD: None : None HEENT: None Psych: None Musculoskeletal: None, Other Derm: None - Past Surgical History Past Surgical History: Yes Ortho: Shoulder arthroplasty - Present Medications Home Medications: Ambulatory Orders Medication Instructions Recorded Confirmed Valacyclovir HCl [Valacyclovir] 1,000 mg PO TID #7 tablet 04/01/19 Albuterol Sulfate [Albuterol 2 puffs IH QID #1 hfa.aer.ad 06/24/19 Sulfate Hfa] Azithromycin [Zithromax] 0 mg PO DAILY #6 tablet 06/24/19 Benzonatate [Tessalon Perle] 100 mg PO TID PRN #30 capsule 06/24/19 Hydrocodone/Acetaminophen [[place] 1 each PO Q6H PRN #15 tablet 06/24/19 5-325 Tablet] dexAMETHasone [Decadron] 4 mg PO DAILY #5 tablet 06/24/19 Doxycycline Monohydrate 100 mg PO BID 7 Days #14 tablet 06/27/19 Gabapentin 300 mg PO TID #10 capsule 06/27/19 Hydrocodone/Acetaminophen [[place] 1 each PO Q6HR PRN #7 tablet 06/27/19 5-325 Tablet] Cefdinir 300 mg PO BID #20 capsule 07/10/19 Phenazopyridine HCl [Pyridium] 200 mg PO TID PRN #6 tablet 06/27/23 cephALEXin [Keflex] 500 mg PO Q6H #20 cap 06/27/23 - Allergies Allergies/Adverse Reactions: Allergies Allergy/AdvReac Type Severity Reaction Status Date / Time Sulfa (Sulfonamide Allergy Unknown Verified 06/27/23 18:22 Antibiotics) - Social History Does the pt smoke?: No Smoking Status: Never smoker Does the pt drink ETOH?: No Does the pt have substance abuse?: No - Immunizations Immunizations are current?: Yes - POLST Patient has POLST: No PD ED PE NORMAL - Vitals Vital signs reviewed: Yes - General General: Alert and oriented X 3, No acute distress - Back Back: No CVA TTP - Neuro Neuro: Alert and oriented X 3, Normal speech Results - Vitals Vitals: Vital Signs - 24 hr 06/27/23 06/27/23 18:20 19:22 Temperature 36.0 C L Heart Rate 84 80 Respiratory 20 16 Rate Blood Pressure 176/116 H 166/94 H O2 Saturation 98 100 Oxygen O2 Source Room air - Labs Labs: Laboratory Tests 06/27/23 18:28 Urine Color YELLOW Urine Clarity CLOUDY Urine pH 7.0 Ur Specific [place] 1.010 Urine Protein NEGATIVE Urine Glucose (UA) NEGATIVE Urine Ketones NEGATIVE Urine Occult Blood SMALL H Urine Nitrite NEGATIVE Urine Bilirubin NEGATIVE Urine Urobilinogen 0.2 (NORMAL) Ur Leukocyte Esterase MODERATE H Urine RBC 0-5 Urine WBC 11-25 H Urine WBC Clumps PRESENT Ur Squamous Epith Cells RARE Squamous Urine Bacteria Few Ur Microscopic Review INDICATED Urine Culture Comments INDICATED PD Medical Decision Making - ED course ED course: Seems mostly like cystitis, she does have a mild backache so chose Keflex for renal penetration noting allergy to sulfa. Departure - Departure Disposition: Home, Self Care Clinical Impression: Cystitis Condition: Good Record reviewed to determine appropriate education?: Yes Instructions: ED UTI Cystitis Female Prescriptions: cephALEXin [Keflex] 500 mg PO Q6H #20 cap Phenazopyridine HCl [Pyridium] 200 mg PO TID PRN #6 tablet PRN Reason: dysuria Comments: I sent your prescriptions electronically to the [facility] pharmacy at the corner of [address] [facility] in [place]. We will culture your urine, the results should be done in 48-72 hours. If an antibiotic change is necessary we will call you. Return if worse in the meantime, especially if you develop increasing flank pain, fevers, or cannot keep down the medication. Forms: PCP List Discharge Date/Time: 06/27/23 19:23
[2023-06-27 18:49] LABS: BACTERIA,URINE Few /HPF (None Seen); RBC,URINE 0-5 /HPF (0-5); SQUAMOUS EPITHELIAL CELL,UR RARE Squamous (<= Few); WBC CLUMPS,URINE PRESENT
[2023-06-27] MEDS: PHENAZOPYRIDINE 100 MG TABLET PO STA (19:16)
[2023-06-27] MEDS: CEPHALEXIN 250 MG Prepack 8 CAP BOTTLE PO STA (19:17)
[2023-06-27 19:32] VITALS: BP 166/94; O2SAT 100
== END 2023-06-27 19:23 | disposition home or self-care (01) ==
LOC: ED 18:17
DX: N30.90 Cystitis, unspecified without hematuria (principal); I10 Essential (primary) hypertension
CPT/HCPCS: 81001; 87086; 87181; 99283; A9270; 81003

== ENCOUNTER 2023-07-28 19:32 | Emergency (ER) | payer BC ==
[2023-07-28 19:57] VITALS: O2SAT 97
[2023-07-28 20:48] LABS: B. PARAPERTUSSIS- RESP PCR PAN NOT DETECTED; B. PERTUSSIS- RESP PCR PANEL NOT DETECTED; C. PNEUMONIAE- RESP PCR PANEL NOT DETECTED; CORONAVIRUS 229E-RESP PCR NOT DETECTED; CORONAVIRUS HKU1-RESP PCR NOT DETECTED; CORONAVIRUS NL63-RESP PCR NOT DETECTED; CORONAVIRUS OC43-RESP PCR NOT DETECTED; HUMAN METAPNEUMOVIRUS NOT DETECTED; INFLUENZA A- RESP PCR PANEL NOT DETECTED; INFLUENZA B - RESP PCR PANEL NOT DETECTED; M. PNEUMONIAE- RESP PCR PANEL NOT DETECTED; PARAINFLUENZA VIRUS 1 NOT DETECTED; PARAINFLUENZA VIRUS 2 NOT DETECTED; PARAINFLUENZA VIRUS 3 NOT DETECTED; PARAINFLUENZA VIRUS 4 NOT DETECTED; RHINOVIRUS/ENTEROVIRUS NOT DETECTED; RSV- RESP PCR PANEL DETECTED; SARS-CoV-2 -RESP PCR PANEL NOT DETECTED
[2023-07-28] MEDS: DEXAMETHASONE 10 MG/ML VIAL PO STA (20:57)
[2023-07-28] MEDS: CHERRY SYRUP 10 ML UDC PO ONE (20:57)
--- NOTE | 2023-07-28 20:58 | ED Physician Documentation ---
History of Present Illness - Stated complaint Stated Complaint: COUGH - Chief complaint Chief Complaint: Resp - History obtained from History obtained from: Patient - Additonal information Additional information: 58yF with pmh hypothyroidism, htn, p/w dry cough, nasal congestion and wheezing X 3 days without fever. some mild throat rawness. unable to sleep due to racking cough. denies cp, soa, leg swelling, n/v/d. 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 : None HEENT: None Psych: None Musculoskeletal: None, Other Derm: None - Past Surgical History Past Surgical History: Yes Ortho: Shoulder arthroplasty - Present Medications Home Medications: Ambulatory Orders Medication Instructions Recorded Confirmed Valacyclovir HCl [Valacyclovir] 1,000 mg PO TID #7 tablet 04/01/19 Albuterol Sulfate [Albuterol 2 puffs IH QID #1 hfa.aer.ad 06/24/19 Sulfate Hfa] Azithromycin [Zithromax] 0 mg PO DAILY #6 tablet 06/24/19 Benzonatate [Tessalon Perle] 100 mg PO TID PRN #30 capsule 06/24/19 Hydrocodone/Acetaminophen [[place] 1 each PO Q6H PRN #15 tablet 06/24/19 5-325 Tablet] dexAMETHasone [Decadron] 4 mg PO DAILY #5 tablet 06/24/19 Doxycycline Monohydrate 100 mg PO BID 7 Days #14 tablet 06/27/19 Gabapentin 300 mg PO TID #10 capsule 06/27/19 Hydrocodone/Acetaminophen [[place] 1 each PO Q6HR PRN #7 tablet 06/27/19 5-325 Tablet] Cefdinir 300 mg PO BID #20 capsule 07/10/19 Phenazopyridine HCl [Pyridium] 200 mg PO TID PRN #6 tablet 06/27/23 cephALEXin [Keflex] 500 mg PO Q6H #28 cap 06/28/23 Albuterol Sulf [Ventolin Hfa 1 - 2 puffs INH Q4HR PRN #18 gm 07/28/23 Inhaler] Codeine Phosphate/Guaifenesin 5 ml PO Q6H PRN #30 ml 07/28/23 [Codeine-Guaifen 10-100 mg/5 ml] - Allergies Allergies/Adverse Reactions: Allergies Allergy/AdvReac Type Severity Reaction Status Date / Time Sulfa (Sulfonamide Allergy Unknown Verified 07/28/23 19:52 Antibiotics) - Social History Does the pt smoke?: No Smoking Status: Never smoker Does the pt drink ETOH?: No Does the pt have substance abuse?: No - Immunizations Immunizations are current?: Yes - POLST Patient has POLST: No PD ED PE NORMAL - Vitals Vital signs reviewed: Yes - General General: Alert and oriented X 3, No acute distress, Well developed/nourished - HEENT HEENT: Atraumatic, PERRL, EOMI, Moist mucous membranes, Pharynx benign, Other (BL nasal turbinates with mild erythema) - Neck Neck: Supple, no meningeal sign - Cardiac Cardiac: RRR - Respiratory Respiratory: No respiratory distress, Other (BL end expiratory wheezing) - Abdomen Abdomen: Non tender, Non distended Results - Vitals Vitals: Vital Signs - 24 hr 07/28/23 19:43 Temperature 37.1 C Heart Rate 98 Respiratory 17 Rate Blood Pressure 148/81 H O2 Saturation 97 Oxygen O2 Source Room air - Labs Labs: Laboratory Tests 07/28/23 19:48 Nasal Adenovirus (PCR) NOT DETECTED Nasal B. parapertussis DNA (PCR) NOT DETECTED Nasal Coronavir 229E PCR NOT DETECTED Nasal Coronavir HKU1 PCR NOT DETECTED Nasal Coronavir NL63 PCR NOT DETECTED Nasal Coronavir OC43 PCR NOT DETECTED Nasal Enterovir/Rhinovir PCR NOT DETECTED Nasal Influenza B PCR NOT DETECTED Nasal Influenza A PCR NOT DETECTED Nasal Parainfluen 1 PCR NOT DETECTED Nasal Parainfluen 2 PCR NOT DETECTED Nasal Parainfluen 3 PCR NOT DETECTED Nasal Parainfluen 4 PCR NOT DETECTED Nasal RSV (PCR) DETECTED A Nasal B.pertussis DNA PCR NOT DETECTED Nasal C.pneumoniae (PCR) NOT DETECTED David Human Metapneumo PCR NOT DETECTED Nasal M.pneumoniae (PCR) NOT DETECTED Nasal SARS-CoV-2 (PCR) NOT DETECTED PD Medical Decision Making - ED course ED course: 58yF with pmh htn, hypothyroid p/w uri sx X 3 days, found to have rsv here in ed. duoneb administered for wheezing with improvement. dextromethorphan/guaifenesin improved cough symptoms. cxr with mild increased interstitial markings c/w rsv bronchitis. symptomatic care discussed and rx sent to pharmacy. return precautions given. Departure - Departure Clinical Impression: RSV bronchitis Condition: Stable Instructions: ED Viral Syndrome Prescriptions: Albuterol Sulf [Ventolin Hfa Inhaler] 1 - 2 puffs INH Q4HR PRN #18 gm PRN Reason: Shortness Of Air/Wheezing Codeine Phosphate/Guaifenesin [Codeine-Guaifen 10-100 mg/5 ml] 5 ml PO Q6H PRN #30 ml PRN Reason: Cough Comments: You were seen in the emergency department for Viral bronchitis caused by RSV. You received 10mg oral decadron, a liquid steroid medication. You also got a breathing treatment with albuterol and ipratropium. Prescriptions sent to [facility] for cough suppressant and puffer. Please follow-up with your primary care provider and return to the emergency department if you have any new or worsening symptoms or other concerns.
[2023-07-28] MEDS: IPRATROPIUM/ALBUTEROL 3 ML NEB INH STA (21:25)
[2023-07-28] MEDS: guaiFENesin/DEXTROMETHORPHAN 10 ML UDC PO STA (21:26)
--- NOTE | 2023-07-28 21:36 | XRAY Report ---
PROCEDURE: Chest 2V INDICATIONS: cough, wheezing X 3 days TECHNIQUE: 2 views of the chest were acquired. COMPARISON: None. FINDINGS: Surgical changes and devices: None. Lungs and pleura: No pleural effusions or pneumothorax. Lungs are clear. Mediastinum: Mediastinal contours appear normal. Heart size is normal. Bones and chest wall: No suspicious bony lesions. Overlying soft tissues appear unremarkable. IMPRESSION: No acute cardiopulmonary process. Reviewed by: Mesfin Ghotra MD on 07/28/2023 9:35 PM [facility] [place] Approved by: Mesfin Ghotra MD on 07/28/2023 9:35 PM [facility] [place] Station ID: [id number]
[2023-07-28 22:37] VITALS: BP 144/80
== END 2023-07-28 22:33 | disposition home or self-care (01) ==
LOC: ED 19:32
DX: J20.5 Acute bronchitis due to respiratory syncytial virus (principal); I10 Essential (primary) hypertension; Z11.52 Encounter for screening for COVID-19
CPT/HCPCS: 71046; 87633; 94640; 94664; 99283; 99284; A9270